=== PATIENT | female | born 1960 | race Caucasian/White ===

== ENCOUNTER 2022-09-18 09:46 | Emergency (ER) | payer BC ==
[~2022-09-18] VITALS: Ht 162.6 cm; Wt 61.7 kg
[2022-09-18 10:38] VITALS: BP_SYST 143; PULSE 67; RESP 18; TEMP 96.9; O2SAT 97
--- NOTE | 2022-09-18 10:47 | NUR ---
PATIENT BIB SELF S/O LEFT THIRD TOE PAIN AFTER KICKING SPRINKLER WHILE WALKING BAREFOOT. PATIENT STATES SHE HEARD A CRACK WHEN HER TOE CONTACTED THE SPRINKLER, PATIENT STATES "AND IT WAS LOUD BECAUSE I'M HARD OF HEARING". WHEN NOT PUTTING PRESSURE ON FOOT, PATIENT RATES PAIN 4/10. SLIGHT PURPLE-BRADEN DISCOLORATION NOTED TO AREA.
--- NOTE | 2022-09-18 10:50 | NUR ---
DR. MERINO AT BEDSIDE.
--- NOTE | 2022-09-18 10:52 | NUR ---
Radiology at bedside - portable xray
[2022-09-18] MEDS ORDERED: NAPR-1172 PO (13:59)
[2022-09-18 14:01] VITALS: BP_SYST 119; PULSE 55; RESP 19; TEMP 96.7; O2SAT 97
--- NOTE | 2022-09-18 14:02 | NUR ---
Patient given written and verbal discharge instructions and verbalizes understanding. ER MD MERINO discussed with patient the results and treatment provided. Patient in stable condition. ID arm band removed. IV catheter removed intact and dressing applied, no active bleeding. Rx of NAPROXEN given. Patient educated on pain management and to follow up with PMD. Pain Scale 2/10. Opportunity for questions provided and answered. Medication side effect fact sheet provided.
== END 2022-09-18 14:02 | disposition home or self-care (01) ==
LOC: SED 09:46
DX: S92.512A Displaced fracture of proximal phalanx of left lesser toe(s), initial encounter for closed fracture (principal); Z79.899 Other long term (current) drug therapy; W22.09XA Striking against other stationary object, initial encounter; Y93.89 Activity, other specified; Y92.89 Other specified places as the place of occurrence of the external cause; Y99.8 Other external cause status
CPT/HCPCS: 99284

== ENCOUNTER 2023-09-09 22:03 | Emergency (ER) | payer BC ==
[~2023-09-09] VITALS: Ht 162.6 cm; Wt 76.7 kg
[~2023-09-09 22:03] MED LIST: NAPR-1172 PO
[2023-09-09 22:27] VITALS: BP_SYST 143; PULSE 63; RESP 18; TEMP 97.6; O2SAT 97
[2023-09-09] MEDS ORDERED: PRED20TA PO (23:06)
[2023-09-09] MEDS ORDERED: TRAM50TA2 PO (23:06)
[2023-09-09] MEDS ORDERED: IBUP-1969 PO (23:06)
[2023-09-09] MEDS: predniSONE 20 MG TABLET PO ONE (23:31)
[2023-09-09] MEDS: KETOROLAC TROMETHAMINE 60 MG/2 ML VIAL IM ONE (23:31)
== END 2023-09-09 23:40 | disposition home or self-care (01) ==
LOC: SED 22:03
DX: M75.41 Impingement syndrome of right shoulder (principal); Z79.899 Other long term (current) drug therapy
CPT/HCPCS: 99283; 73030; 96372; J7512; J1885